=== PATIENT | male | born 2000 | race African-American/Black ===

== ENCOUNTER 2024-09-01 15:16 | Emergency (ER) | payer OTHER ==
[~2024-09-01] VITALS: Ht 172.7 cm; Wt 80.1 kg
[2024-09-01] MEDS ORDERED: NAPR220C14 PO (15:26)
[2024-09-01] MEDS ORDERED: ACET650T15 PO (16:24)
[2024-09-01 16:44] VITALS: BP 126/71; TEMP 97.9; O2SAT 99
== END 2024-09-01 16:47 | disposition home or self-care (01) ==
LOC: M ED 15:16
DX: M67.833 Other specified disorders of tendon, right wrist (principal); Z88.6 Allergy status to analgesic agent; Z79.1 Long term (current) use of non-steroidal anti-inflammatories (NSAID); Y92.89 Other specified places as the place of occurrence of the external cause; Y93.89 Activity, other specified; Y99.1 Military activity

== ENCOUNTER → 2025-02-25 | Outpatient (CLI) | payer OTHER ==
[~2025-02-25] MED LIST: ACET650T15 PO; ISOVUE-300 61% 100ML VIAL As Ordered ONE; LIDOCAINE 1% MDV 20ML VIAL As Ordered ONE; NAPR220C14 PO; PROHANCE 279.3MG/ML 5ML VIAL As Ordered ONE
== END ==
LOC: M RAD 06:54
PROVIDERS: ATTEND Orthopaedic Surgery Hand Surgery
DX: M25.531 Pain in right wrist (principal); Z87.81 Personal history of (healed) traumatic fracture
CPT/HCPCS: 25246; 73223; 77002; A9576; Q9967